=== PATIENT | female | born 1980 | race African-American/Black ===

== ENCOUNTER 2017-02-23 03:31 | Emergency (ER) | payer OTHER ==
[~2017-02-23] VITALS: Ht 172.7 cm; Wt 145.1 kg
[~2017-02-23 03:31] MED LIST: ALBUTEROL 0.5ML; ALBUTEROL17 G1; BACTRIM DS TABL1 TAB PO; BARACLUDE; BENZONATATE PO; COUMADIN PO; DICLOFENAC PO; EC-NAPROSYN500 MG PO; FIORICET W/CODE1 CAP PO; FLEXERIL PO; HYDROCHLOROTHIA25 MG PO; IBUPROFEN PO; LORTAB 10-5001 EACH PO; LORTAB 5/500 TA1 TA1 PO; METOPROLOL TAR25 MG PO; MOBIC PO; MUCINEX DM ER1 EAC1 PO; MULTI COMPLETE1 EACH PO; NAPROSYN250 M1 PO; PHENERGAN PO; PHENTERMINE PO; PREDNISONE10 MG PO; PRENATAL1 TA1 PO; PROVERA10 MG PO; TAMIFLU75 M1 PO; TESSALON200 MG PO; TOPROL XL PO; TYLOX 5/500 CAP1 CAP PO; VICODIN 5/500 T1 TAB PO; [UNRECOGNIZED DRUG - SUPPLY]
[2017-02-23 04:39] LABS: BASOPHIL# 0.1 X10e3 (0-0.3); BASOPHIL% 0.9 % (0-2.5); EOSINOPHIL# 0.3 X10e3 (0-0.7); EOSINOPHIL% 3.9 % (0.0-7.0); HEMATOCRIT 42.5 % (35.0-45.0); HEMOGLOBIN 13.8 gm/dL (12.0-16.0); LYMPHOCYTE# 5.3 X10e3 (1.0-3.5); LYMPHOCYTE% 62.1 % (17.0-45.0); MEAN CELL VOLUME 83.7 FL (83-96); MEAN CORPUSCULAR HEMOGLOBIN 27.2 PG (28-34); MEAN CORPUSCULAR HGB CONC 32.5 g/dL (30-36); MEAN PLATELET VOLUME 7.1 FL (6.5-11.5); MONOCYTE# 0.4 X10e3 (0-1.0); MONOCYTE% 4.8 % (3.0-12.0); NEUTROPHIL# 2.4 X10e3 (1.5-7.1); NEUTROPHIL% 28.3 % (40-75); PLATELET COUNT 363 X10e3 (140-420); RED BLOOD COUNT 5.08 X10e (3.90-5.30); RED CELL DISTRIBUTION WIDTH 15.8 % (11.0-15.5); WHITE BLOOD COUNT 8.5 X10e3 (4.0-10.5)
[2017-02-23 04:40] LABS: DIFF IND YES
[2017-02-23 05:12] LABS: DIFFERENTIAL COMMENT Y; PLATELET ESTIMATE NORMAL (NORMAL)
[2017-02-24 20:20] LABS: CHLAMYDIA TRACH Not Detected (Not Detected); N GONOR Not Detected (Not Detected)
== END 2017-02-23 06:13 | disposition home or self-care (01) ==
LOC: SED 03:31
PROVIDERS: Emergency Medicine
DX: N76.0 Acute vaginitis (principal); N93.8 Other specified abnormal uterine and vaginal bleeding; Z86.19 Personal history of other infectious and parasitic diseases; F17.200 Nicotine dependence, unspecified, uncomplicated
CPT/HCPCS: 36415; 84702; 85025; 86900; 86901; 87491; 87591; 87808; 87905; 99284

== ENCOUNTER 2017-03-22 02:35 | Emergency (ER) | payer OTHER ==
[~2017-03-22] VITALS: Ht 170.2 cm; Wt 142.9 kg
--- NOTE | ~2017-03-22 | CT23 ---
[facility] A Service of [facility] RADIOLOGY TEXT RESULTS PATIENT: XIANG BAZAN LOCATION: SED : [birth year] UNIT #: [id number] AGE: [address]: Nichole Andrade MD SEX: F ORDER DR: [id number] [place] [id number] E MR#: [id number] Acc #: [id number] NAME: XIANG BAZAN : 1980 SEX: F STUDY DATE/TIME: 03/22/2017 5:50 UNIT: SED ROOM: STUDY DESCRIPTION: CT Angio Neck Attending Physician: Nichole Andrade M.D. Ordering Physician: Mylene Reis M.D. Primary Care Physician: Zana Matthews M.D. MEDICAL IMAGING REPORT This report is preliminary unless electronic signature is present. EXAM CT angiogram head and neck HISTORY Dizziness. Lightheadedness. Headache. Seeing spots. Symptoms started earlier today. TECHNIQUE CT angiography head and neck vessels performed during intravenous administration of 100 mL of Isovue-370. Imaging acquired in the axial plane followed by multiple reconstructed and reformatted images for the purpose of 3-D CT angiography head and neck vessels. Initial imaging placed online inadequate with improper reformats. This has resulted in dictation delay. This CT exam was performed with one or more of the following radiation dose reduction techniques: automatic exposure control, adjustment of mA and/or kV according to patient size, and iterative reconstruction. COMPARISON STUDIES There is earlier noncontrast head CT. FINDINGS CT ANGIOGRAM NECK: There is a bovine origin to the left common carotid artery. There is no hemodynamically-significant narrowing suspected great vessel origin from the arch. Evaluation of the right carotid system shows 0% stenosis of the right carotid bifurcation by NASCET criteria. The right carotid siphon is widely patent. Assessment of the left carotid system shows 0% stenosis by NASCET criteria at the left carotid bifurcation and left carotid siphon is widely patent. The left vertebral artery is patent throughout the neck and intracranially and supplies the basilar. The right vertebral artery [facility] A Service of [facility] RADIOLOGY TEXT RESULTS PATIENT: XIANG BAZAN LOCATION: SED : [birth year] UNIT #: [id number] AGE: [address]: Nichole Andrade MD SEX: F ORDER DR: is patent throughout the neck and intracranially and supplies the basilar. Left is slightly dominant. Evaluation of the intracranial circulation is somewhat technically limited. Allowing for this, there is no obvious intracranial vascular cutoff. This study is insufficient to evaluate for irregularity of vascular lumen. No high-grade central stenosis is suspected. Study is also limited for assessment for aneurysm due to technical limitations. No significant-sized posterior communicator is seen on either side. There is probably an anterior communicator present. The region of the anterior communicator is partly obscured by the adjacent bone. This patient has an enlarged, apparently empty sella. Again, please correlate for any clinical concern for pseudotumor cerebri. See the earlier head CT dictation. On this study, the left-sided transverse sinus is not definitely seen medially. There is a tiny left side sigmoid sinus. Otherwise, the dural venous sinuses are patent. The appearance of the left transverse sinus could be developmental or acquired but I do not see an acute filling defect at this time. There is some dependent atelectasis in the lungs. Partial opacification of the paranasal sinuses again noted without definite sinus air-fluid level. There is extensive dental disease and caries and correlation with a dental exam is recommended. IMPRESSION 1. By NASCET criteria, 0% stenosis at either carotid bifurcation. 2. Both vertebral arteries are patent and supply the basilar. 3. There is no gross intracranial vascular cutoff. The study is somewhat technically limited intracranially and the study would not be sensitive for vascular irregularity or small aneurysms. No high-grade central stenosis is appreciated. 4. This patient has an enlarged, probably empty sella. Please refer back to the earlier noncontrast head CT report. Please correlate for any clinical concern for papilledema or pseudotumor cerebri. 5. The left transverse sinus is not seen. This could be a developmental finding or acquired finding. There is, however, nothing to suggest a filling defect and therefore, it does not appear to be acutely abnormal. 6. Paranasal sinus disease without sinus air-fluid level. 7. Dental disease with caries appreciated and please correlate with a follow-up dental exam. STAT * RESULT Dictated by... Liat Fraga M.D. [facility] A Service of [facility] RADIOLOGY TEXT RESULTS PATIENT: XIANG [id number] [birth year] UNIT #: [id number] AGE: [address]: Nichole Andrade MD SEX: F ORDER DR: THIS IS AN ELECTRONICALLY VERIFIED REPORT Liat Fraga M.D. at 03/22/2017 11:39 AM SAC/pcl TD: 03/22/2017 09:14 JOB #: [id number] MEDICAL IMAGING REPORT Page 1 of 1
--- NOTE | ~2017-03-22 | CT71 ---
[facility] A Service of [facility] RADIOLOGY TEXT RESULTS PATIENT: XIANG BAZAN LOCATION: SED : [birth year] UNIT #: [id number] AGE: [address]: Nichole Andrade MD SEX: F ORDER DR: [id number] [place] [id number] E MR#: [id number] Acc #: [id number] NAME: XIANG BAZAN : 1980 SEX: F STUDY DATE/TIME: 03/22/2017 4:52 UNIT: SED ROOM: STUDY DESCRIPTION: CT Head Wo Contrast Attending Physician: Mylene Reis M.D. Ordering Physician: Mylene Reis M.D. Primary Care Physician: Zana Matthews M.D. MEDICAL IMAGING REPORT This report is preliminary unless electronic signature is present. EXAM Head CT without contrast HISTORY Dizziness, lightheadedness and headache with seeing spot starting earlier today. A 37-year-old female. COMMENTS Routine noncontrast head CT is reviewed. This CT exam was performed with one or more of the following radiation dose reduction techniques: automatic exposure control, adjustment of mA and/or kV according to patient size, and iterative reconstruction. COMPARISON STUDIES Comparison study is from 03/31/2009. FINDINGS There is partial opacification of visualized ethmoid air cells but no air-fluid level appreciated. Visualized mastoid air cells are clear. There is no evidence for acute intracranial hemorrhage or extraaxial fluid collection. There is a large amount of streak artifact on the lower images apparently due to beam hardening limiting the exam. Basilar cisterns are patent. I suspect that there is a partially empty sella and sella is enlarged. The appearance is chronic, but the amount of sellar enlargement is probably increasing. Recommend correlation with a followup MRI of the brain with attention to the sella for further characterization. Please correlate as well for any clinical evidence of pseudotumor cerebral since this can be a secondary finding associated with that entity and the patient's visual complaints. There is no acute cortical infarct suspected. There is no hydrocephalus. [facility] A Service of [facility] RADIOLOGY TEXT RESULTS PATIENT: XIANG BAZAN [place] [facility] [place] [birth year] [place]IT #: [id number] AGE: [address]: Nichole Andrade MD SEX: F ORDER DR: IMPRESSION 1. Patient has what appears to be an enlarged partially empty sella. It is not well characterized on noncontrast CT scan but given that the bony enlargement of the sella probably progressing since 2008. I would recommend that this patient be further evaluated with MRI of the brain using a sellar protocol with and without contrast. Please correlate at this time for any clinical evidence of papilledema/pseudotumor cerebral given the patient's complaint of visual disturbance as well as the fact that an enlarged empty sella is a secondary sign associated with pseudotumor cerebral. It is otherwise nonspecific. 2. Otherwise no acute no acute intracranial abnormality is suspected. ADDENDUM Study obtained 04:52 a.m. placed online for radiologist interpretation and 06:20 a.m. Reason not given. STAT * RESULT Dictated by... Liat Fraga M.D. THIS IS AN ELECTRONICALLY VERIFIED REPORT Liat Fraga M.D. at 03/22/2017 9:20 AM [place] TD: 03/22/2017 06:47 JOB #: [id number] MEDICAL IMAGING REPORT Page 1 of 1
--- NOTE | ~2017-03-22 | CT17 ---
[facility] A Service of [facility] RADIOLOGY TEXT RESULTS PATIENT: XIANG BAZAN LOCATION: SED : [birth year] UNIT #: [id number] AGE: [address]: Nichole Andrade MD SEX: F ORDER DR: [id number] [place] [id number] E MR#: [id number] Acc #: [id number] NAME: XIANG BAZAN : 1980 SEX: F STUDY DATE/TIME: 03/22/2017 5:50 UNIT: SED ROOM: STUDY DESCRIPTION: CT Angio Head Attending Physician: Nichole Andrade M.D. Ordering Physician: Mylene Reis M.D. Primary Care Physician: Zana Matthews M.D. MEDICAL IMAGING REPORT This report is preliminary unless electronic signature is present. EXAM CTA head and neck HISTORY Refer below. FINDINGS Please refer to the CTA neck report on the same date for complete details. Dictated by... Liat Fraga M.D. THIS IS AN ELECTRONICALLY VERIFIED REPORT Liat Fraga M.D. at 03/22/2017 11:46 AM SAC/pcl TD: 03/22/2017 10:52 JOB #: [id number] MEDICAL IMAGING REPORT Page 1 of 1
[2017-03-22] MEDS ORDERED: AMOXICILLIN875 MG PO (02:55)
[2017-03-22 04:06] LABS: BASOPHIL# 0.1 X10e3 (0-0.3); BASOPHIL% 1.3 % (0-2.5); EOSINOPHIL# 0.3 X10e3 (0-0.7); EOSINOPHIL% 4.1 % (0.0-7.0); HEMATOCRIT 41.2 % (35.0-45.0); HEMOGLOBIN 13.7 gm/dL (12.0-16.0); LYMPHOCYTE% 59.8 % (17.0-45.0); MEAN CORPUSCULAR HEMOGLOBIN 27.6 PG (28-34); MEAN CORPUSCULAR HGB CONC 33.3 g/dL (30-36); MEAN PLATELET VOLUME 6.9 FL (6.5-11.5); MONOCYTE# 0.3 X10e3 (0-1.0); MONOCYTE% 4.1 % (3.0-12.0); NEUTROPHIL# 2.6 X10e3 (1.5-7.1); NEUTROPHIL% 30.7 % (40-75); PLATELET COUNT 326 X10e3 (140-420); RED BLOOD COUNT 4.97 X10e (3.90-5.30); RED CELL DISTRIBUTION WIDTH 15.7 % (11.0-15.5); WHITE BLOOD COUNT 8.4 X10e3 (4.0-10.5)
[2017-03-22 04:08] LABS: DIFF IND NO
[2017-03-22 04:18] LABS: ALBUMIN SERUM 3.8 g/dL (3.5-5.0); ALKALINE PHOSPHATASE 58 U/L (32-92); ALT (SGPT) 28 U/L (10-40); AST (SGOT) 19 U/L (10-42); BILIRUBIN, DIRECT <0.1 mg/dL (0.0-0.2); BILIRUBIN,INDIRECT 0.2 mg/dL (0.0-0.9); BILIRUBIN,TOTAL 0.3 mg/dL (0.2-2.0); BLOOD UREA NITROGEN 7 mg/dL (9-23); BUN/CREATININE RATIO 8.75; CALCIUM SERUM 8.5 mg/dL (8.4-10.2); CARBON DIOXIDE 28 mmol/L (22-31); CHLORIDE 103 mmol/L (100-111); CREATININE SERUM 0.8 mg/dL (0.6-1.4); GLUCOSE FASTING 96 mg/dL (70-110); POTASSIUM 3.6 mmol/L (3.5-5.1); PROTEIN TOTAL SERUM 6.7 g/dL (6.0-8.3); SODIUM 139 mmol/L (135-145)
[2017-03-22 05:15] LABS: URINE APPEARANCE TURBID; URINE BILIRUBIN NEG (NEG); URINE BLOOD 3+ (NEG); URINE COLOR RED; URINE GLUCOSE NEG (NORM); URINE KETONE NEG (NEG); URINE LEUKOCYTE ESTERASE TRACE (NEG); URINE NITRATE NEG (NEG); URINE PH 5.5 (5-8); URINE PROTEIN 2+ (NEG); URINE SPECIFIC GRAVITY >=1.030 (1.003-1.035)
[2017-03-22 05:17] LABS: MICRO INDICATED? YES; URINE SOURCE CLEAN CATCH
[2017-03-22 05:20] LABS: CULTURE INDICATED? NO; URINE BACTERIA NEG (NEG); URINE MUCUS PRESENT; URINE RBC 100-200 /[HPF] (0-2); URINE SQUAMOUS EPITHELIAL CELL FEW /[HPF]; URINE TRANSITIONAL EPI CELLS FEW /[HPF]
== END 2017-03-22 11:34 | disposition home or self-care (01) ==
LOC: SED 02:35
PROVIDERS: Emergency Medicine
DX: R51 Headache (principal); F17.200 Nicotine dependence, unspecified, uncomplicated; Z79.899 Other long term (current) drug therapy
CPT/HCPCS: 70450; 70496; 70498; 80048; 80076; 81003; 84703; 85025; 96361; 96374; 96375; 99284; J1100; J1200; J1885; J2765; Q9967